=== PATIENT | male | born 1950 | race Caucasian/White ===

== ENCOUNTER 2018-08-02 12:29 | Emergency (ER) | payer OTHER ==
[~2018-08-02] VITALS: Ht 177.8 cm; Wt 90.7 kg
[2018-08-02] MEDS ORDERED: SYNTHROID (13:05)
== END 2018-08-02 20:04 | disposition home or self-care (01) ==
LOC: ER 12:29
DX: K52.89 Other specified noninfective gastroenteritis and colitis (principal); E86.0 Dehydration

== ENCOUNTER 2024-10-31 07:35 | Outpatient (CLI) | payer OTHER ==
[~2024-10-31 07:35] MED LIST: SYNTHROID
== END 2024-10-31 13:34 | disposition home or self-care (01) ==
LOC: TOM 07:35
PROVIDERS: ATTEND Internal Medicine Gastroenterology
DX: R19.4 Change in bowel habit (principal); K63.5 Polyp of colon